=== PATIENT | female | born 1985 | race Caucasian/White ===

== ENCOUNTER 2025-01-28 00:37 | Emergency (ER) | payer BC ==
[~2025-01-28] VITALS: Ht 167.6 cm; Wt 77.3 kg
[2025-01-28 00:41] VITALS: BP 131/89; PULSE 84; RESP 16; O2SAT 98
--- NOTE | 2025-01-28 00:48 | Physician Documentation ---
History of Present Illness ~ Chief Complaint: Hallucinations Stated Complaint: EVAL Time Seen by MD: 00:47 HPI Patient presents to the emergency room for evaluation of auditory hallucinations. She has history of similar hallucinations when baby was just born and she attributed this to sleep deprivation. She does state that she has been having problems sleeping and took some Benadryl a proximally an hour and a half before incident. Hallucination consists of for hearing her baby crying however when she goes to check on the baby that has not crying and has been who is at bedside confirms that there was no crying. Medication Reconciliation Allergies: Coded Allergies: No Known Allergies (Unverified , 01/28/25) Review of Systems ROS All review of systems negative except as per HPI Physical Exam Vital Signs: Temperature: 97.8, Heart Rate: 84, Respiratory Rate: 16, BP: 131/89, Pulse Oximetry: 98, Weight: 77.270 Oxygen Flow Rate: 0 Physical Exam General: Patient is awake, alert, oriented x4 in no acute distress. Anxious Head: Normocephalic and atraumatic. Eyes: Conjunctival normal. EOMI. PERRL. ENT: Mucous membranes moist. Neck: Supple, trachea is midline. Chest: Clear to auscultation bilaterally without rales, rhonchi, or wheezes. There is no accessory muscle use or retractions. Cardiac: RRR without murmurs, gallops, or rubs. Progress Results/Orders Results/Orders Orders - TIO BALBUENA MD Drug Screen, Urine (01/28/25 01:27) Urinalysis, Cult If Indicated (01/28/25 01:27) Hcg, Ur Ql (01/28/25 01:27) Vital Signs 01/28/25 00:41 Temp 97.8 Pulse 84 Resp 16 B/P (MAP) 131/89 Pulse Ox 98 O2 Flow Rate 0 Medical Decision Making Additional info obtained from: other Findings Patient presents to the emergency room for evaluation of hallucinations. Consulted with tele neurology who recommends outpatient follow up. ER precau tions discussed. I do not believe she is gravely disabled. She has good support. Differential Dx:Considerations: Include: Alcohol abuse, Anxiety, Bipolar disorder, Conversion disorder, Depression, Encephaloathy, Homicidal, Panic dis order, Personality disorder, Schizophrenia, Substance abuse, Suicidal, Other Departure Disposition: 01 HOME / SELF CARE / HOMELESS Impression: Primary Impression: Hallucinations Condition: Stable Discharge Instructions: General Discharge Instructions Additional Instructions: Follow up with your doctor today for investigation into hallucinations. Return for worsening of symptoms or any SI/HI Referrals: NO PRIMARY CARE PROVIDER (PCP) Signature Scribe Signature: No scribe Attestation: The note accurately reflects work and decisions made by me.Tio Balbuena MD 01/28/25 01:35 TIO BALBUENA MD Jan 28, 2025 00:48
--- NOTE | 2025-01-28 01:31 | [facility] CONSULT REPORT ---
[facility] Procedure Note [facility] Procedure Note Consult [facility] Note # Demographics Consult Type: General Neurology Patient Location: Emergency Room First Name: SARIAH Last Name: JACY Date of : 1985 Age: 39 Gender: Female Facility: [facility] Time of Initial Page (): 01/28/2025 01:01 First Contact with Site (): 01/28/2025 01:02 # HPI Chief Complaint: hearing things that are not real History: 39 yo female presents with h/o migraine headaches presents with c/o hearing things that are not real. She states that she was suffering from a bad headache this evening and went to bed. However, she was woken up by her son crying. She states that she is under a lot of stress with taking care of him as he is autistic. She states that she woke up and put him back to sleep but then later she continued to hear him cry despite him still being asleep. She got upset and got into an argument with her . She was then brought in for further evaluation. # Scores Time of exam and NIHSS (): 01/28/2025 01:02 Level of Consciousness 1a: [0] = Alert; keenly responsive LOC Questions 1b: [0] = Answers both questions correctly LOC Commands 1c: [0] = Performs both tasks correctly Best Gaze 2: [0] = Normal Visual 3: [0] = No visual loss Facial Palsy 4: [0] = Normal symmetrical movements Motor Arm Left 5a: [0] = No drift Motor Arm Right 5b: [0] = No drift Motor Leg Left 6a: [0] = No drift Motor Leg Right 6b: [0] = No drift Limb Ataxia 7: [0] = Absent Sensory 8: [0] = Normal Best Language 9: [0] = No aphasia Dysarthria 10: [0] = Normal Extinction and Inattention 11: [0] = No abnormality NIHSS Total: 0 # Exam Time of Exam (): 01/28/2025 01:02 # Assessment Impression: - Other Auditory hallucinations Differential Diagnosis: - Other Auditory hallucinations Anxiety Bipolar disorder # Plan Thrombolytic/Intervention: NOT IV Thrombolysis or IA Intervention candidate Thrombolytic/Intraarterial Exclusion: - IV thrombolytic and IA intervention considered but not recommended as this patient's symptoms are not clinically consistent with an assumed diagnosis of stroke Modified Carmel Scale (mRS) pre-stroke: [0] = No symptoms at all. Target Blood Pressure: - SBP 130-150 Labs: - urine drug screen - ua Other: - If patient has any neurological deterioration please call me back immediately - I have discussed my recommendations with the referring provider Additional Recommendations: Recommend psychiatry consultation. Disposition: observation # Logistics Attestation of consult completion: The patient is located at: [facility]. Facility staff participated in the visit. I performed this telemedicine visit from my offsite office utilizing interactive 2 way audio and visual telecommunication technology at the request of the onsite emergency room provider. Total time spent in telemedicine encounter: I spent 40 minutes reviewing clinical data and/or imaging, obtaining history, examining the patient, communicating with the onsite care team, and in preparation of this report. # Demographics First Name: SARIAH Last Name: JACY Facility: [facility] Electronically signed at 01/28/2025 01:24 ([place] Time) by Noam Malik MD Neuro Consult Order placed for: Yes NOAM MALIK III, MDOct 2024 01:31
[2025-01-28 02:03] VITALS: TEMP 97.8
== END 2025-01-28 02:06 | disposition home or self-care (01) ==
LOC: ER 00:39
DX: R44.0 Auditory hallucinations (principal)
CPT/HCPCS: 99282

== ENCOUNTER 2025-03-07 10:25 | Day surgery (SDC) | payer BC ==
[~2025-03-07] VITALS: Ht 170.2 cm; Wt 76.2 kg
[~2025-03-07 10:25] MED LIST: ALBU8HFA IH; RIME75TA PO; TRAZ-251 PO; ringers solution, lacted 1,000 ML IV SCH; simethicone 40mg/0.6ml oral drops 15ml PO ONE
[2025-03-07 10:52] VITALS: RESP 15; O2SAT 97
[2025-03-07 11:14] VITALS: BP 97/60; PULSE 82; RESP 15; TEMP 99; O2SAT 95
[2025-03-07] MEDS ORDERED: midazolam 1 mg/ML 2ml injection ONE (12:36)
[2025-03-07] MEDS ORDERED: fentaNYL/PF 50MCG/1 ML 2ML syringe ONE (12:36)
[2025-03-07] MEDS ORDERED: LIDOcaine 2% (20mg/ml) 5ml vial ONE (13:07)
[2025-03-07] MEDS ORDERED: propofol inj 20 ML IV ONE (13:07)
[2025-03-07 13:13] VITALS: BP 112/72; PULSE 80; RESP 16; O2SAT 100
[2025-03-07 13:20] VITALS: BP 110/73; PULSE 73; RESP 14; O2SAT 98
[2025-03-07 13:30] VITALS: BP 132/82; PULSE 78; RESP 17; O2SAT 98
[2025-03-07 13:40] VITALS: BP 126/80; PULSE 73; RESP 16; O2SAT 98
== END 2025-03-07 13:53 | disposition home or self-care (01) ==
LOC: PRE-OP 10:25
PROVIDERS: ATTEND Internal Medicine Gastroenterology
DX: K92.1 Melena (principal); K64.4 Residual hemorrhoidal skin tags; K62.89 Other specified diseases of anus and rectum; E78.5 Hyperlipidemia, unspecified; J45.909 Unspecified asthma, uncomplicated; F41.9 Anxiety disorder, unspecified; G43.909 Migraine, unspecified, not intractable, without status migrainosus; Z79.899 Other long term (current) drug therapy; Z98.890 Other specified postprocedural states
CPT/HCPCS: 45378; J2003; J2250; J2704; J3010; J7120; Z7512; A4615; A4620